=== PATIENT | male | born 1985 | race Caucasian/White ===

== ENCOUNTER 2017-07-30 21:22 | Emergency (ER) | payer OTHER ==
[~2017-07-30] VITALS: Wt 73.5 kg
[~2017-07-30 21:22] MED LIST: AMOX1TAB10 PO; CYCL-319 PO; HYDR-3498 PO; IBUP-1542 PO; LORA-441 PO; NO MEDS; TRAM50TA2 PO
[2017-07-30] MEDS ORDERED: ONDANSETRON (ODT) 4 MG TAB ODT STA (23:27)
[2017-07-30] MEDS ORDERED: ELEC100080 PO (23:36)
[2017-07-30] MEDS ORDERED: ONDA4TAB14 PO (23:36)
--- NOTE | 2017-07-31 00:39 | ERD ---
ER Documentation Chief Complaint Date/Time DATE: 07/31/17 TIME: 00:36 Chief Complaint AP this morning. Diarrhea and N/V HPI 28-year-old male comes in with 2 day history of mid abdominal pain, vomiting and diarrhea. Patient states that he felt like he had a fever, has been taking NyQuil, as well as Pepto-Bismol for his symptoms. He reports up to 5 episodes of nonbloody nonbilious emesis. Reports also 5 episodes of diarrhea, stools are nonbloody non-mucousy. He states that his symptoms are actually improving. There is no abdominal pain at this time. Denies recent travel. Patient's child is also here with history of fever and diarrhea 1 day. ROS All systems reviewed and are negative except as per history of present illness. Medications Home Meds Active Scripts Electrolyte,Oral (Pedialyte) 1,000 Ml Solution, 100 ML PO Q6 Y for DIARRHEA, # 1000 ML Prov:JN PEREZ PA-C 07/30/17 Ondansetron (Ondansetron Odt) 4 Mg Tab.rapdis, 4 MG PO Q6H Y for NAUSEA AND/OR VOMITING, #10 TAB Prov:JN PEREZ PA-C 07/30/17 Tramadol HCl (Tramadol HCl) 50 Mg Tablet, 50 MG PO Q6 Y for PAIN, #20 TAB Prov:RITO JUAREZ NP 08/26/16 Amoxicillin/Potassium Clav (Amox-Clav 875-125 mg Tablet) 875-125 mg Tab, 1 TAB PO BID for 10 Days, #20 TAB Prov:RITO JUAREZ NP 08/26/16 Cyclobenzaprine Hcl* (Cyclobenzaprine Hcl*) 10 Mg Tablet, 10 MG PO TID, #15 TAB Prov:RITO JUAREZ NP 06/01/16 Ibuprofen* (Motrin*) 600 Mg Tab, 600 MG PO Q6H Y for PAIN AND OR ELEVATED TEMP, #30 TAB Prov:RITO JUAREZ NP 06/01/16 Hydrocodone Bit-Acetaminophen* ([place]*) 5-325 Mg Tab, 1 TAB PO Q6 Y for PAIN, # 20 TAB Prov:RITO JUAREZ NP 06/01/16 Lorazepam* (Ativan*) 0.5 Mg Tablet, 0.5 MG PO Q8, #3 TAB Prov:VU DELATORRE PA-C 02/14/16 Reported Medications [No Meds] No Conflict Check 12/25/12 [None] No Conflict Check 08/07/11 Allergies Allergies: Uncoded Allergies: SHRIMP (Allergy, 06/06/11) PMhx/Soc History of Surgery: No Anesthesia Reaction: No Hx Neurological Disorder: No Hx Respiratory Disorders: No Hx Cardiac Disorders: No Hx Psychiatric Problems: No Hx Miscellaneous Medical Probl: No Hx Alcohol Use: Yes Hx Substance Use: No Hx Tobacco Use: Yes Smoking Status: Heavy tobacco smoker Physical Exam Vitals Vital Signs Date Time Temp Pulse Resp B/P Pulse Ox O2 Delivery O2 Flow Rate FiO2 07/30/17 21:32 98.5 86 20 131/76 98 Physical Exam \General: Well-developed, well-nourished. The patient appears in no acute distress. HEENT: Head is normocephalic, atraumatic. No scleral icterus. Pupils are equal , round, and reactive. Oral mucous membranes are moist. No pharyngeal erythema. Neck: Supple. Nontender. Lungs: Clear to auscultation. Normal air movement. Heart: Regular rate and rhythm. S1 and S2 are normal. No murmurs, gallops, or rubs. Abdomen: Soft, nontender, nondistended. Bowel sounds are normoactive. Extremities: No clubbing or cyanosis. Normal pulses. Moving extremities x 4. No weakness. Neurologic: Alert and oriented 3. No focal deficits. Skin: Normal turgor. No rash or lesions. Results 24 hrs Current Medications Medications (Trade) Dose Ordered Sig/Deb Route PRN Reason Start Time Stop Time Status Last Admin Dose Admin Ondansetron HCl (Zofran Odt) 4 mg ONCE STAT ODT 07/30/17 23:27 07/30/17 23:30 DC Procedures/MDM 31-year-old male comes to emergency room vomiting, diarrhea and mid abdominal pain, most consistent with viral gastroenteritis. His symptoms are improving, patient does not continue to have fever, and his abdominal pain is mild. Patient will be given nausea medication as well as Pedialyte for his symptoms. I do not see any signs of diverticulitis, acute appendicitis, intra-abdominal abscess. Departure Diagnosis: Primary Impression: Vomiting and diarrhea Condition: Good Patient Instructions: Self-Care for Vomiting and Diarrhea Additional Instructions: Call your primary care doctor TOMORROW for an appointment during the next 1-2 days.See the doctor sooner or return here if your condition worsens before your appointment time. JN PEREZ PA-C Jul 31, 2017 00:39
== END 2017-07-31 00:59 | disposition home or self-care (01) ==
LOC: FTE 21:22
DX: R11.10 Vomiting, unspecified (principal); R19.7 Diarrhea, unspecified; F17.210 Nicotine dependence, cigarettes, uncomplicated
CPT/HCPCS: Z7502; Z7610; 99283